=== PATIENT | male | born 1955 | race Caucasian/White ===

== ENCOUNTER → 2024-08-13 | Outpatient (CLI) | payer MEDICARE, SELFPAY ==
[2024-08-13 09:54] LABS: Collection Type, Urine Clean Catch
[2024-08-13 10:32] LABS: Basophils # (Auto) 0.1 Thou/mm3 (0.0-0.2); Basophils % (Auto) 2 % (0-2.5); Eosinophils # (Auto) 0.2 Thou/mm3 (0.0-0.5); Eosinophils % (Auto) 3 % (0-10); Hematocrit 40.3 % (41.0-53.0); Hemoglobin 13.5 g/dL (13.5-16.0); Immature Granulocytes % (Auto) 0 % (0-0); Immature Granulocytes Auto 0.03 Thou/mm3 (0.00-0.00); Lymphocytes # (Auto) 1.8 Thou/mm3 (1.0-4.8); Lymphocytes % (Auto) 25 % (10-50); Mean Corpuscular HGB Conc 33.5 g/dl (31.0-37.0); Mean Corpuscular Hemoglobin 30.7 pg (25.0-35.0); Mean Corpuscular Volume 92 fL (80-100); Monocytes # (Auto) 0.8 Thou/mm3 (0.0-0.8); Monocytes % (Auto) 11 % (0-12); Neutrophils # (Auto) 4.2 Thou/mm3 (1.8-7.7); Neutrophils % (Auto) 59 % (37-80); Nucleated Red Blood Cell % 0 /100 WBC (0); Platelet Count 225 Thou/mm3 (140-440); RDW Standard Deviation 41.8 fL (35.1-43.9); White Blood Count 7.2 Thou/mm3 (3.8-10.6)
[2024-08-13 10:34] LABS: Creatinine MALB Rnd Ur 145 mg/dL (30-125); Microalbumin Creat Ratio 33 mg/gCrea (<30); Microalbumin, Random Urine 48 mg/L (0-300)
[2024-08-13 10:46] LABS: Alanine Aminotransferase 24 U/L (10-49); Albumin, Serum 4.4 gm/dL (3.4-4.8); Albumin/Globulin Ratio 1.8 (1.2-2.2); Alkaline Phosphatase 100 U/L (46-116); Anion Gap 8 (7-16); Aspartate Amino Transferase 18 U/L (0-34); BUN/Creatinine Ratio 11 Ratio (12-20); Bilirubin,Total 0.4 mg/dL (0.3-1.2); Blood Urea Nitrogen 21 mg/dL (9-23); Calcium 9.3 mg/dL (8.3-10.6); Calcium (Corrected) 9.3 mg/dL (8.5-10.1); Carbon Dioxide 23.3 mMol/L (20.0-31.0); Cardiac Risk Estimate 4.6 RATIO (4.0-6.7); Chloride 108 mMol/L (98-107); Cholesterol 151 mg/dL (132-200); Globulin 2.5 gm/dL (2.3-3.5); Glucose 92 mg/dL (74-106); HDL Cholesterol 33 mg/dL (40-60); LDL Cholesterol,Calculated 94 mg/dL (0-130); Osmolality,Calculated 280 (275-295); Potassium 4.1 mMol/L (3.4-5.1); Sodium 139 mMol/L (136-145); Thyroid Stimulating Hormone 3.35 uIU/mL (0.55-4.78); Total Protein 6.9 gm/dL (5.7-8.2); Triglycerides 118 mg/dL (30-150); eGFR 36 See Note
[2024-08-13 10:47] LABS: Vitamin B12 437 pg/mL (211-911); Vitamin D 25 Hydroxy Total 25.4 ng/mL (7.3-40.2)
[2024-08-13 10:49] LABS: Bilirubin,Urine Negative (Negative); Blood,Urine Trace (Negative); Clarity,Urine Clear (Clear/Hazy); Color,Urine Lt-Yellow (Lt Yel-Yel); Glucose, Urine Negative (Negative); Ketones,Urine Negative (Negative); Leukocyte Esterase,Urine Negative (Negative); Nitrite,Urine Negative (Negative); Protein,Urine 1+ (Neg - Trace); RBC,Urine 3 /hpf (0-3); Specific Gravity,Urine 1.018 (1.001-1.035); Squamous Epithelial Cell,Urine < 1 /hpf (0-5); Urobilinogen,Urine Negative mg/dL (0.0-1.0); WBC,Urine 1 /hpf (0-5)
== END | disposition home or self-care (01) ==
LOC: COPL 09:13
PROVIDERS: PCP Internal Medicine; Referring Provider Internal Medicine; Visit Provider Internal Medicine
DX: I12.9 Hypertensive chronic kidney disease with stage 1 through stage 4 chronic kidney disease, or unspecified chronic kidney disease (principal); N18.30 Chronic kidney disease, stage 3 unspecified; E78.5 Hyperlipidemia, unspecified; E03.9 Hypothyroidism, unspecified
CPT/HCPCS: 36415; 80053; 80061; 81001; 82043; 82306; 82570; 82607; 83970; 84443; 85025

== ENCOUNTER → 2024-12-07 | Outpatient (CLI) | payer MEDICARE, SELFPAY ==
[2024-12-07 10:07] LABS: Parathyroid Hormone Intact 97.5 pg/ml (18.5-88.0)
[2024-12-07 10:14] LABS: Albumin, Serum 4.2 gm/dL (3.4-4.8); Anion Gap 8 (7-16); BUN/Creatinine Ratio 9 Ratio (12-20); Blood Urea Nitrogen 17 mg/dL (9-23); Carbon Dioxide 24.1 mMol/L (20.0-31.0); Chloride 109 mMol/L (98-107); Creatinine (Component) 1.9 mg/dL (0.6-1.3); Glucose 101 mg/dL (74-106); Osmolality,Calculated 282 (275-295); Potassium 3.8 mMol/L (3.4-5.1); Sodium 141 mMol/L (136-145); Thyroid Stimulating Hormone 4.26 uIU/mL (0.55-4.78); eGFR 38 See Note
== END | disposition home or self-care (01) ==
LOC: COPL 08:32
PROVIDERS: PCP Internal Medicine; Referring Provider Internal Medicine; Visit Provider Internal Medicine
DX: I10 Essential (primary) hypertension (principal); E03.9 Hypothyroidism, unspecified
CPT/HCPCS: 36415; 80069; 83970; 84443

== ENCOUNTER → 2025-01-14 | Outpatient (CLI) | payer MEDICARE, SELFPAY ==
[2025-01-14 11:21] LABS: Alanine Aminotransferase 21 U/L (10-49); Albumin, Serum 4.2 gm/dL (3.4-4.8); Albumin/Globulin Ratio 1.8 (1.2-2.2); Alkaline Phosphatase 84 U/L (46-116); Anion Gap 9 (7-16); BUN/Creatinine Ratio 11 Ratio (12-20); Bilirubin,Total 0.4 mg/dL (0.3-1.2); Blood Urea Nitrogen 21 mg/dL (9-23); Calcium 9.2 mg/dL (8.3-10.6); Calcium (Corrected) 9.2 mg/dL (8.5-10.1); Carbon Dioxide 22.5 mMol/L (20.0-31.0); Chloride 106 mMol/L (98-107); Creatinine (Component) 1.9 mg/dL (0.6-1.3); Globulin 2.3 gm/dL (2.3-3.5); Glucose 95 mg/dL (74-106); Osmolality,Calculated 276 (275-295); Potassium 3.6 mMol/L (3.4-5.1); Sodium 137 mMol/L (136-145); Total Protein 6.5 gm/dL (5.7-8.2); eGFR 38 See Note
[2025-01-14 11:30] LABS: Basophils # (Auto) 0.1 Thou/mm3 (0.0-0.2); Basophils % (Auto) 2 % (0-2.5); Eosinophils # (Auto) 0.2 Thou/mm3 (0.0-0.5); Eosinophils % (Auto) 3 % (0-10); Hematocrit 39.8 % (41.0-53.0); Hemoglobin 13.7 g/dL (13.5-16.0); Immature Granulocytes % (Auto) 0 % (0-0); Immature Granulocytes Auto 0.03 Thou/mm3 (0.00-0.00); Lymphocytes # (Auto) 1.8 Thou/mm3 (1.0-4.8); Lymphocytes % (Auto) 25 % (10-50); Mean Corpuscular HGB Conc 34.4 g/dl (31.0-37.0); Mean Corpuscular Hemoglobin 31.2 pg (25.0-35.0); Mean Corpuscular Volume 91 fL (80-100); Monocytes # (Auto) 0.8 Thou/mm3 (0.0-0.8); Monocytes % (Auto) 10 % (0-12); Neutrophils # (Auto) 4.4 Thou/mm3 (1.8-7.7); Neutrophils % (Auto) 60 % (37-80); Nucleated Red Blood Cell % 0 /100 WBC (0); Platelet Count 227 Thou/mm3 (140-440); RDW Standard Deviation 41.7 fL (35.1-43.9); Red Blood Count 4.39 Miln/mm3 (4.50-5.90); White Blood Count 7.2 Thou/mm3 (3.8-10.6)
== END | disposition home or self-care (01) ==
LOC: SCTO 09:44
PROVIDERS: PCP Internal Medicine; Referring Provider Internal Medicine Hematology & Oncology; Visit Provider Internal Medicine Hematology & Oncology
DX: C77.0 Secondary and unspecified malignant neoplasm of lymph nodes of head, face and neck (principal)
CPT/HCPCS: 36415; 80053; 85025

== ENCOUNTER 2025-01-24 09:47 | Outpatient (RCR) | payer MEDICARE, SELFPAY ==
--- NOTE | 2025-01-24 10:54 | CTCFLWUP_ITS ---
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 He presents for follow-up of his oncological care and management of multiple chronic conditions. Since his last visit, the patient reports no new symptoms or changes in his overall health status. He denies weight loss, new cough, or shortness of breath. The patient has been adherent to smoking cessation efforts, using a nicotine patch for the past 2 months. He continues to manage his chronic conditions, including kidney dysfunction resulting from previous cisplatin treatment. The patient reports ongoing oral dryness due to saliva gland removal during previous surgery, which he manages by drinking water constantly. The patient recently underwent a prostate biopsy following the discovery of a 2.5 cm suspicious nodule during a renal ultrasound. The biopsy results were clear. He has been following up with his primary care physician, Dr. Ballesteros, who is also a kidney specialist, for management of his chronic kidney disease. Medications and Supplements - Nicotine patch - Using for 2 months for smoking cessation - Cisplatin - Discontinued - Caused kidney damage Review of Systems General: Negative for weight loss. Respiratory: Negative for new cough, shortness of breath. Objective: Laboratory, Imaging, and Diagnostic Test Results - PET scan (2022): Negative - Renal ultrasound: Prostate nodule detected - PSA: 0.60 - Prostate biopsy: Clear - Kidney function: 38 (normal 60) - Labs: Reported as good (no specific values provided) ONCOLOGY HISTORY: DIAGNOSIS: Metastatic squamous cell carcinoma of the neck of unknown primary probably from the head and neck region (09/06/2014). Chronic renal insufficiency thought to be secondary to cisplatin that was used during his treatment for metastatic squamous cell carcinoma of the neck. PET/CT scan negative (09/17/2022) REASON FOR TODAY?S VISIT: This is office follow-up visit. Mr. Gunn is here at [facility]. He is clinically doing well. Denies any new complaints. Denies any cough, chest pain, abdominal pain or leg cramps. He was recently found to have a nodule in the prostate gland on renal ultrasound. Patient is scheduled to see Dr. Goncalves. PSA was in the normal range Secondary and unspecified malignant neoplasm of lymph nodes of head, face and neck [ICD10] C77.0 DATE OF DIAGNOSIS: 09/06/2014 STAGE/TNM: Metastatic squamous cell cancer of neck TREATMENT HISTORY: Care?Plan Start?Date Cycle Day Intent CISplatin?40?mg/m*2?+?Radiation?Therapy?-?Primary,?Adj,?Rec 10/09/2014 1 7 Curative?(primary) Cetuximab?250 12/04/2014 1 28 Curative?(adjuvant) HISTORY OF PRESENT ILLNESS: Federico Gunn is a 69-year-old Beninese speaking male, retired a [employer], with history of COPD, low back pain, hypertension has the following oncology history. 08/21/2014: Patient had ultrasound of the head and neck soft tissues which showed a 4.7 x 3.7 x 1.8 cm mass, solid with areas of cystic change in the submental region on the right side of the neck. 09/06/2014: Patient had excision biopsy of the mass on the right side of the neck. Pathology showed metastatic squamous cell carcinoma, moderately differentiated, keratinizing type. Workup at that time did not show any primary tumor in the head and neck region. Patient was treated with chemoradiation followed by surgery. 10/07/2014?12/13/2014: Patient received 6300 cGy radiation to the head and neck. 10/09/2014?11/11/2014: Patient received 5 weekly doses of cisplatin. 11/25/2018: PET CT scan was done. It did not show any evidence of metastatic disease. 12/22/2019: PET CT scan?no interval recurrent tumor or metastatic disease. 09/17/2022: PET/CT scan?for metastatic disease.. 12/07/2023: PSA 0.60. 12/16/2023: Complete retroperitoneal ultrasound OTHER MEDICAL HISTORY/CONDITIONS: FAMILY HISTORY: SOCIAL HISTORY: MEDICATIONS: 1. amlodipine - 5 mg 1 tab Twice a Day 2. levothyroxine - 50 mcg 1 tab Daily 3. metoprolol succinate - 50 mg 1 tab Daily 4. Symbicort - 80-4.5 mcg/actuation Twice a Day 5. tamsulosin - 0.4 mg 1 Capsule Daily Medications Last Reconciled by Della Torres MA on 01/24/2025 ALLERGIES: No Known Allergies REVIEW OF SYSTEMS: A complete 14-point review of systems was performed and is negative except as noted in interval history. PHYSICAL EXAMINATION: VITAL SIGNS: Temperature?98.2, B/P?117/70, Oxygen?Saturation?97% Weight?189?lbs PAIN: 0 - No pain ECOG Performance Status: 0 - Asymptomatic and fully active GENERAL APPEARANCE: Appears well, in no apparent distress, appropriately interactive. HEENT: Normocephalic, no temporal wasting, normal conjunctiva, no scleral icterus, normal hearing, lips without lesions, neck normal range of motion. CARDIOVASCULAR: Not assessed. PULMONARY: Normal respiratory effort, no respiratory distress or use of accessory muscles, speaking in full sentences, no tachypnea. EXTREMITIES: No pedal edema or cyanosis. SKIN: Normal skin appearance. NEUROLOGIC: Alert and oriented x4. PSHYCHIATRIC: Appropriate affect, mood normal, behavior normal, intact thought and speech. LABORATORY DATA: I have personally reviewed and interpreted each of the patient?s relevant lab tests, abnormal findings are below: Date 08/13/24 12/07/24 01/14/25 ??WHITE?BLOOD?COUNT?(Thou/mm3) 7.2 ? 7.2 ??RED?BLOOD?COUNT?(Miln/mm3) 4.40?L ? 4.39?L ??HEMOGLOBIN?(gm/dl) 13.5 ? 13.7 ??HEMATOCRIT?(%) 40.3?L ? 39.8?L ??PLATELET?COUNT?(Thou/mm3) 225 ? 227 ??NEUTROPHILS?%,?AUTO?(%) 59 ? 60 ??LYMPH?%,?AUTO?(%) 25 ? 25 ??NEUTROPHILS,?AUTO?(Thou/mm3) 4.2 ? 4.4 ??GLUCOSE,RANDOM?(mg/dL) ? 101 95 ??BLOOD?UREA?NITROGEN?(mg/dL) ? 17 21 ??CREATININE?(mg/dL) ? 1.90?H 1.90?H ??SODIUM?(mmol/L) ? 141 137 ??POTASSIUM?(mmol/L) ? 3.8 3.6 ??CHLORIDE?(mmol/L) ? 109?H 106 ??CrCl?(CandG)?(ml/min) ? 42.12 42.12 ??ALT/SGPT?(Unit/L) ? ? 21 ??ALKALINE?PHOSPHATASE?(Unit/L) ? ? 84 ??BILIRUBIN,?TOTAL?(mg/dL) ? ? 0.4 ??PROTEIN?TOTAL?(gm/dl) ? ? 6.5 ??ALBUMIN,?SERUM?(gm/dl) ? 4.2 4.2 ??GLOBULIN?(gm/dl) ? ? 2.3 ??ALBUMIN/GLOBULIN?RATIO ? ? 1.8 ??CALCIUM,?SERUM?(mg/dL) ? 9.0 9.2 ??CALCIUM?SERUM?(CORRECTED)?(mg/dL) ? 9.0 9.2 ASSESSMENT/PLAN: Male patient with history of metastatic squamous cell carcinoma of the neck (unknown primary) in 2014, chronic adrenal insufficiency, and candidiasis, presenting for follow-up of various health concerns. 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 A PET scan in 2022 was negative, suggesting no current evidence of disease. Patient underwent surgery for tumor removal, which included removal of a saliva gland, resulting in chronic dry mouth. No current symptoms suggestive of recurrence, such as weight loss, new cough, or shortness of breath. History of metastatic squamous cell carcinoma presented as a metastatic lytic lesion in the right side of the neck with unknown primary. Patient was treated with excision biopsy followed by chemoradiation Plan: - Schedule CT scan of the chest without contrast due to smoking history and kidney issues - Refer to ENT for follow-up after tumor removal surgery - Advise patient to drink water constantly to manage dry mouth from saliva gland removal - Follow up in one year for routine visit Chronic kidney disease Assessment: Patient has reduced kidney function with an estimated GFR of 38 mL/min (normal is 60 mL/min). The kidney damage is attributed to previous cisplatin treatment. Patient is under the care of Dr. Ballesteros, a kidney specialist, for management. Plan: - Avoid nephrotoxic medications, including aspirin, ibuprofen, and other NSAIDs - Encourage increased water intake - Recommend dietary modifications: limit salt intake, avoid processed foods, especially preserved pickles, and reduce consumption of red meat, beef, and pork - Continue follow-up with Dr. Ballesteros for kidney management Smoking Assessment: Patient is a current smoker and has been using a nicotine patch for smoking cessation for 2 months. Smoking cessation is crucial for overall health, particularly given the patient's history of cancer and kidney disease. Plan: - Continue nicotine patch for smoking cessation - Reinforce importance of smoking cessation - Monitor progress and provide support as needed Prostate nodule Assessment: A 2.5 cm suspicious nodule was previously noted in the prostate. Patient was referred to Dr. Goncalves, a urologist, for further evaluation. Subsequent biopsy was clear. PSA level was 0.60. Plan: - No immediate intervention required given clear biopsy results - Continue routine prostate cancer screening as per age-appropriate guidelines Chronic adrenal insufficiency Assessment: Patient has a history of chronic adrenal insufficiency. No acute issues related to this condition were discussed during the visit. Plan: - Continue current management for adrenal insufficiency - Monitor for any signs of adrenal crisis Candidiasis Assessment: Patient has a history of candidiasis. No active symptoms or concerns related to this condition were discussed during the visit. Plan: - Continue current management for candidiasis if any - Monitor for recurrence of symptoms Mr. Gunn is currently being referred to Dr. Goncalves, urologist. I have advised Mr. Gunn to call us back and make an appointment if he was found to have prostate cancer I will see the patient back in clinic in 1 year with CBC and CMP done prior to the visit. ORDERS: Order # Description [id number] Comprehensive Metabolic Panel - 12 + CBC with Auto Diff + PSA [id number] CT Scan + Chest + Without Contrast [id number] MD Follow Up 2 Months + MD Follow Up 1 Year RETURN TO CLINIC: BILLING AND COMPLIANCE: I reviewed external records from providers outside my specialty as summarized above. I spent a total of 50 minutes on this patient?s care on the day of their visit excluding time spent related to any billed procedures. This time includes time spent with the patient as well as time spent documenting in the medical record, reviewing patients records and tests, obtaining history, placing orders, communicating with other healthcare professionals, counseling the patient, family or caregiver, and/or care coordination for the diagnoses above. Electronically Signed by: Misha Celis MD T: 10:52 AM CC: Chance?Evangelina? PCP: Chance Hutchinson Referring: Chance Hutchinson This document was completed utilizing speech recognition software. Grammatical errors, random word insertions, pronoun errors, and incomplete sentences are an occasional consequence of this system due to software limitations, ambient noise, and hardware issues. Any formal questions or concerns about the content, text or information contained within the body of this dictation should be directly addressed to the provider for clarification.
== END 2025-02-04 23:59 | disposition home or self-care (01) ==
LOC: SCTC 09:47
PROVIDERS: PCP Internal Medicine; Referring Provider Internal Medicine; Visit Provider Internal Medicine Hematology & Oncology
DX: Z08 Encounter for follow-up examination after completed treatment for malignant neoplasm (principal); Z85.9 Personal history of malignant neoplasm, unspecified; N18.9 Chronic kidney disease, unspecified; F17.200 Nicotine dependence, unspecified, uncomplicated; Z71.6 Tobacco abuse counseling; N40.2 Nodular prostate without lower urinary tract symptoms; E27.40 Unspecified adrenocortical insufficiency; Z86.19 Personal history of other infectious and parasitic diseases
CPT/HCPCS: 99212; G0463

== ENCOUNTER → 2025-02-25 | Outpatient (CLI) | payer MEDICARE, SELFPAY ==
--- NOTE | 2025-02-25 16:30 | XR_ITS ---
Examination: CT chest, without intravenous contrast. Sagittal and coronal 2-D reconstructions. Exam date and time: February 25, 2025 1559 hours INDICATIONS: Smoking history 40 years, 2 mm pleural-based pulmonary nodule right upper lobe on CT chest May 27, 2015, diagnosis malignant neoplasm lymph nodes CTDI:vol (mGy) 12 DLP: (mGycm) 467 Technique: Multiple 3.0 mm axial sections of the chest to been obtained. Bone and lung density settings are obtained. Sagittal and coronal 2-D reconstructions have been obtained. Low dose protocols were performed. One or more of the following dose reduction techniques were used; automated exposure control, adjustment of the mA and/or KV according to patient size, use of iterative reconstruction technique. Findings: No thoracic aortic aneurysm dilatation Pulmonary artery segments are not enlarged No paratracheal tracheobronchial or bronchopulmonary adenopathy. 3 mm pulmonary nodule right upper lobe image 158 2 mm pulmonary nodule right upper lobe axial image 193 Soft spiculated nodule in the right upper lobe, 16 mm, image 193 2 mm pleural-based pulmonary nodule right lower lobe image 214 No pneumonia or pulmonary edema No visualized liver or splenic lesion IMPRESSION: Multiple pulmonary nodules as above, recommend continued 6 month follow-up CT chest without contrast Partial visualization 8.4 cm right renal cyst, please see the CT abdomen pelvis report 05/02/2024
== END | disposition home or self-care (01) ==
PROVIDERS: Referring Provider Internal Medicine Hematology & Oncology; Visit Provider Internal Medicine Hematology & Oncology
DX: R91.8 Other nonspecific abnormal finding of lung field (principal); N20.0 Calculus of kidney; C77.0 Secondary and unspecified malignant neoplasm of lymph nodes of head, face and neck
CPT/HCPCS: 71271

== ENCOUNTER → 2025-03-11 | Outpatient (CLI) | payer MEDICARE, SELFPAY ==
[2025-03-11 08:40] LABS: Basophils # (Auto) 0.1 Thou/mm3 (0.0-0.2); Basophils % (Auto) 1 % (0-2.5); Eosinophils # (Auto) 0.2 Thou/mm3 (0.0-0.5); Eosinophils % (Auto) 2 % (0-10); Hematocrit 43.3 % (41.0-53.0); Hemoglobin 14.6 g/dL (13.5-16.0); Immature Granulocytes Auto 0.07 Thou/mm3 (0.00-0.00); Lymphocytes # (Auto) 1.4 Thou/mm3 (1.0-4.8); Lymphocytes % (Auto) 21 % (10-50); Mean Corpuscular HGB Conc 33.7 g/dl (31.0-37.0); Mean Corpuscular Hemoglobin 30.9 pg (25.0-35.0); Mean Corpuscular Volume 92 fL (80-100); Monocytes # (Auto) 0.7 Thou/mm3 (0.0-0.8); Monocytes % (Auto) 10 % (0-12); Neutrophils # (Auto) 4.5 Thou/mm3 (1.8-7.7); Neutrophils % (Auto) 65 % (37-80); Nucleated Red Blood Cell # 0.00 Thou/mm3 (0.00-0.00); Nucleated Red Blood Cell % 0 /100 WBC (0); Platelet Count 212 Thou/mm3 (140-440); RDW Standard Deviation 41.4 fL (35.1-43.9); Red Blood Count 4.73 Miln/mm3 (4.50-5.90); White Blood Count 7.0 Thou/mm3 (3.8-10.6)
[2025-03-11 08:53] LABS: Alanine Aminotransferase 30 U/L (10-49); Albumin, Serum 4.5 gm/dL (3.4-4.8); Albumin/Globulin Ratio 1.8 (1.2-2.2); Alkaline Phosphatase 90 U/L (46-116); Anion Gap 9 (7-16); Aspartate Amino Transferase 22 U/L (0-34); BUN/Creatinine Ratio 8 Ratio (12-20); Bilirubin,Total 0.7 mg/dL (0.3-1.2); Blood Urea Nitrogen 16 mg/dL (9-23); Calcium 9.4 mg/dL (8.3-10.6); Calcium (Corrected) 9.4 mg/dL (8.5-10.1); Carbon Dioxide 21.3 mMol/L (20.0-31.0); Cardiac Risk Estimate 5.3 RATIO (4.0-6.7); Chloride 109 mMol/L (98-107); Cholesterol 155 mg/dL (132-200); Creatinine (Component) 1.9 mg/dL (0.6-1.3); Free T4 (Free Thyroxine) 1.24 ng/dL (0.89-1.76); Globulin 2.5 gm/dL (2.3-3.5); Glucose 107 mg/dL (74-106); HDL Cholesterol 29 mg/dL (40-60); LDL Cholesterol,Calculated 92 mg/dL (0-130); Magnesium 1.6 mg/dL (1.6-2.6); Osmolality,Calculated 278 (275-295); Potassium 3.9 mMol/L (3.4-5.1); Sodium 139 mMol/L (136-145); Thyroid Stimulating Hormone 4.29 uIU/mL (0.55-4.78); Total Protein 7.0 gm/dL (5.7-8.2); Triglycerides 169 mg/dL (30-150); eGFR 38 See Note
[2025-03-11 09:02] LABS: Glucose Estimated Average 117 mg/dL (80-131); Hemoglobin A1C 5.7 % Hgb (4.8-6.0)
== END | disposition home or self-care (01) ==
LOC: COPL 07:29
PROVIDERS: PCP Internal Medicine; Referring Provider Internal Medicine; Visit Provider Internal Medicine
DX: Z00.00 Encounter for general adult medical examination without abnormal findings (principal); I10 Essential (primary) hypertension; E11.9 Type 2 diabetes mellitus without complications; E78.5 Hyperlipidemia, unspecified; E61.2 Magnesium deficiency
CPT/HCPCS: 36415; 80053; 80061; 83036; 83735; 84439; 84443; 85025

== ENCOUNTER → 2025-03-21 | Outpatient (CLI) | payer MEDICARE, SELFPAY ==
[2025-03-21 10:42] LABS: Basophils # (Auto) 0.1 Thou/mm3 (0.0-0.2); Basophils % (Auto) 2 % (0-2.5); Eosinophils # (Auto) 0.2 Thou/mm3 (0.0-0.5); Eosinophils % (Auto) 3 % (0-10); Hematocrit 37.4 % (41.0-53.0); Hemoglobin 12.4 g/dL (13.5-16.0); Immature Granulocytes Auto 0.03 Thou/mm3 (0.00-0.00); Lymphocytes # (Auto) 1.6 Thou/mm3 (1.0-4.8); Lymphocytes % (Auto) 23 % (10-50); Mean Corpuscular HGB Conc 33.2 g/dl (31.0-37.0); Mean Corpuscular Hemoglobin 31.0 pg (25.0-35.0); Mean Corpuscular Volume 94 fL (80-100); Monocytes # (Auto) 0.7 Thou/mm3 (0.0-0.8); Monocytes % (Auto) 10 % (0-12); Neutrophils # (Auto) 4.2 Thou/mm3 (1.8-7.7); Neutrophils % (Auto) 62 % (37-80); Nucleated Red Blood Cell # 0.00 Thou/mm3 (0.00-0.00); Nucleated Red Blood Cell % 0 /100 WBC (0); Platelet Count 207 Thou/mm3 (140-440); RDW Standard Deviation 43.3 fL (35.1-43.9); Red Blood Count 4.00 Miln/mm3 (4.50-5.90); White Blood Count 6.8 Thou/mm3 (3.8-10.6)
[2025-03-21 11:00] LABS: Alanine Aminotransferase 23 U/L (10-49); Albumin, Serum 4.2 gm/dL (3.4-4.8); Albumin/Globulin Ratio 1.8 (1.2-2.2); Alkaline Phosphatase 81 U/L (46-116); Anion Gap 7 (7-16); Aspartate Amino Transferase 23 U/L (0-34); BUN/Creatinine Ratio 10 Ratio (12-20); Bilirubin,Total 0.6 mg/dL (0.3-1.2); Blood Urea Nitrogen 19 mg/dL (9-23); Calcium 9.0 mg/dL (8.3-10.6); Calcium (Corrected) 9.0 mg/dL (8.5-10.1); Carbon Dioxide 21.9 mMol/L (20.0-31.0); Chloride 111 mMol/L (98-107); Creatinine (Component) 1.9 mg/dL (0.6-1.3); Globulin 2.4 gm/dL (2.3-3.5); Glucose 82 mg/dL (74-106); Osmolality,Calculated 280 (275-295); Potassium 4.1 mMol/L (3.4-5.1); Sodium 140 mMol/L (136-145); Total Protein 6.6 gm/dL (5.7-8.2); eGFR 38 See Note
[2025-03-21 12:17] LABS: Prostate Specific Antigen 0.60 ng/mL (0-4.00)
== END | disposition home or self-care (01) ==
LOC: SCTO 09:33
PROVIDERS: PCP Internal Medicine; Referring Provider Internal Medicine Hematology & Oncology; Visit Provider Internal Medicine Hematology & Oncology
DX: C77.0 Secondary and unspecified malignant neoplasm of lymph nodes of head, face and neck (principal)
CPT/HCPCS: 36415; 80053; 84153; 85025

== ENCOUNTER 2025-03-26 15:42 | Outpatient (RCR) | payer MEDICARE, SELFPAY ==
--- NOTE | 2025-03-26 15:56 | CTCFLWUP_ITS ---
Patient: FEDERICO GUNN : 1955 MR#: [id number] Page 2 of 2 TELEHEALTH FOLLOW UP NOTE DATE OF CONSULTATION: 03/26/2025 NAME: FEDERICO GUNN ACCOUNT: [id number] : 1955 AGE: 69 REFERRING PHYSICIAN: Chance Hutchinson MD PRIMARY PHYSICIAN: Chance Hutchinson MD INTERVAL HISTORY: Patient is a 43-swua-zeur smoking history. Patient is a current smoker. Patient have a history of head and neck cancer. Patient here to follow-up on the CT scan. DIAGNOSIS: Secondary and unspecified malignant neoplasm of lymph nodes of head, face and neck [ICD10] C77.0 HISTORY OF PRESENT ILLNESS: Federico Gunn is a 69-year-old Maori speaking male, retired a clinical psychologist private practice, with history of COPD, low back pain, hypertension has the following oncology history. 08/21/2014: Patient had ultrasound of the head and neck soft tissues which showed a 4.7 x 3.7 x 1.8 cm mass, solid with areas of cystic change in the submental region on the right side of the neck. 09/06/2014: Patient had excision biopsy of the mass on the right side of the neck. Pathology showed metastatic squamous cell carcinoma, moderately differentiated, keratinizing type. Workup at that time did not show any primary tumor in the head and neck region. Patient was treated with chemoradiation fo llowed by surgery. 10/07/2014?12/13/2014: Patient received 6300 cGy radiation to the head and neck. 10/09/2014?11/11/2014: Patient received 5 weekly doses of cisplatin. 11/25/2018: PET CT scan was done. It did not show any evidence of metastatic disease. 12/22/2019: PET CT scan?no interval recurrent tumor or metastatic disease. 09/17/2022: PET/CT scan?for metastatic disease.. 12/07/2023: PSA 0.60. 12/16/2023: Complete retroperitoneal ultrasoundOTHER MEDICAL HISTORY/CONDITIONS: 02/25/2025 CT scan shows multiple pulmonary nodules ranging 2 to 3 mm and recommended 6-month follow-up largest nodule 16 mm soft spiculated nodule FAMILY HISTORY: SOCIAL HISTORY: MEDICATIONS: 1. amlodipine - 5 mg 1 tab Twice a Day 2. levothyroxine - 50 mcg 1 tab Daily 3. metoprolol succinate - 50 mg 1 tab Daily 4. Symbicort - 80-4.5 mcg/actuation Twice a Day 5. tamsulosin - 0.4 mg 1 Capsule Daily Medications Last Reconciled by Della Torres MA on 01/24/2025 ALLERGIES: No Known Allergies REVIEW OF SYSTEMS: A complete 14-point review of systems was performed and is negative except as noted in interval history. PHYSICAL EXAMINATION: The patient appeared well-nourished, alert, and in no apparent distress via video conferencing. LABORATORY DATA: I have personally reviewed and interpreted each of the patient?s relevant lab tests, abnormal findings are below: ASSESSMENT/PLAN: Head and neck cancer Lung nodules in the smoker Reviewed CT scan findings with Mr. Gunn. Radiology recommended to repeat CT scan in 6 months Patient have a soft spiculated nodule in the right upper lobe Will refer to interventional radiology for possible biopsy If biopsy cannot be completed we will do repeat CT scan in 6 months RTC after the biopsy results ORDERS: Order # Description [id number] CT Scan + Chest + With W/O Contrast [id number] MD Follow Up 6 Month + CBC with Auto Diff + Comprehensive Metabolic Panel - 12 + PSA RETURN TO CLINIC: I reviewed the diagnosis, prognosis, and recommended treatment/procedure options with the patient (and/or their legal sales representative facility services), including the potential benefits, risks, side effects and alternative therapies. We also discussed the option of no treatment and the possibility of clinical trial participation, if applicable. All questions were addressed, and they demonstrated understanding. They provided informed consent to proceed with the proposed plan of care. BILLING AND COMPLIANCE: I reviewed external records from providers outside my specialty as summarized above. I spent a total of 50 minutes on this patient?s care on the day of their visit excluding time spent related to any billed procedures. This time includes time spent with the patient as well as time spent documenting in the medical record, reviewing patients records and tests, obtaining history, placing orders, communicating with other healthcare professionals, counseling the patient, family or caregiver, and/or care coordination for the diagnoses above. I performed this evaluation using real-time Telehealth tools. Prior to initiating, the patient consented to perform this evaluation using Telehealth tools. Electronically Signed by: Misha Celis MD T: 3:54 PM CC: Uri,? PCP: Chance Hutchinson Referring: Chance Hutchinson This document was completed utilizing speech recognition software. Grammatical errors, random word insertions, pronoun errors, and incomplete sentences are an occasional consequence of this system due to software limitations, ambient noise, and hardware issues. Any formal questions or concerns about the content, text or information contained within the body of this dictation should be directly addressed to the provider for clarification.
== END 2025-04-07 23:59 | disposition home or self-care (01) ==
LOC: SCTC 15:42
PROVIDERS: PCP Internal Medicine; Referring Provider Internal Medicine; Visit Provider Internal Medicine Hematology & Oncology
DX: Z08 Encounter for follow-up examination after completed treatment for malignant neoplasm (principal); Z85.89 Personal history of malignant neoplasm of other organs and systems; Z92.3 Personal history of irradiation; Z92.21 Personal history of antineoplastic chemotherapy; R91.8 Other nonspecific abnormal finding of lung field; F17.200 Nicotine dependence, unspecified, uncomplicated
CPT/HCPCS: 99212; G0463

== ENCOUNTER 2025-05-27 14:53 | Outpatient (RCR) | payer MEDICARE, SELFPAY ==
--- NOTE | 2025-06-02 21:08 | CTCFLWUP_ITS ---
Patient: FEDERICO GUNN : 1955 Page 2 of 4 FOLLOW UP NOTE DATE OF SERVICE: 05/27/2025 NAME: FEDERICO GUNN ACCOUNT: [id number] : 1955 AGE: 69 INTERVAL HISTORY: Patient is a 43-kllk-lsxm smoking history. Patient is a current smoker. Patient have a history of head and neck cancer. Multiple pulmonary nodules as above, recommend continued 6 month follow-up CT chest without contrast ONCOLOGY HISTORY: DIAGNOSIS: Secondary and unspecified malignant neoplasm of lymph nodes of head, face and neck [ICD10] C77.0 Secondary and unspecified malignant neoplasm of lymph nodes of head, face and neck [ICD10] C77.0 DATE OF DIAGNOSIS: STAGE/TNM: TREATMENT HISTORY: Care?Plan Start?Date Cycle Day Intent CISplatin?40?mg/m*2?+?Radiation?Therapy?-?Primary,?Adj,?Rec 10/09/2014 1 7 Curative?(primary) Cetuximab?250 12/04/2014 1 28 Curative?(adjuvant) HISTORY OF PRESENT ILLNESS: Federico Gunn is a 69-year-old Turkmen speaking male, retired a [employer], with history of COPD, low back pain, hypertension has the following oncology history. 08/21/2014: Patient had ultrasound of the head and neck soft tissues which showed a 4.7 x 3.7 x 1.8 cm mass, solid with areas of cystic change in the submental region on the right side of the neck. 09/06/2014: Patient had excision biopsy of the mass on the right side of the neck. Pathology showed metastatic squamous cell carcinoma, moderately differentiated, keratinizing type. Workup at that time did not show any primary tumor in the head and neck region. Patient was treated with chemoradiation fo llowed by surgery. 10/07/2014?12/13/2014: Patient received 6300 cGy radiation to the head and neck. 10/09/2014?11/11/2014: Patient received 5 weekly doses of cisplatin. 11/25/2018: PET CT scan was done. It did not show any evidence of metastatic disease. 12/22/2019: PET CT scan?no interval recurrent tumor or metastatic disease. 09/17/2022: PET/CT scan?for metastatic disease.. 12/07/2023: PSA 0.60. 12/16/2023: Complete retroperitoneal ultrasoundOTHER MEDICAL HISTORY/CONDITIONS: 02/25/2025 CT scan shows multiple pulmonary nodules ranging 2 to 3 mm and recommended 6-month follow-up largest nodule 16 mm soft spiculated nodule OTHER MEDICAL HISTORY/CONDITIONS: FAMILY HISTORY: ?Clone Family Hx? SOCIAL HISTORY: MEDICATIONS: 1. amlodipine - 10 mg 1 tab Daily 2. aspirin - 81 mg 1 tab Daily 3. levothyroxine - 50 mcg 1 tab Daily 4. metoprolol succinate - 25 mg 1 tab Daily 5. Symbicort - 80-4.5 mcg/actuation Twice a Day 6. tamsulosin - 0.4 mg 1 Capsule Daily?Palabra Meds? Medications Last Reconciled by Mirella Foy MD on 05/27/2025 ALLERGIES: No Known Allergies REVIEW OF SYSTEMS: A complete 14-point review of systems was performed and is negative except as noted in interval history. PHYSICAL EXAMINATION:?CloneBlock PE? VITAL SIGNS: Temperature?97.3, B/P?114/70, Oxygen?Saturation?96% Weight?185?lbs PAIN: 0 - No pain The patient appeared well-nourished, alert, and in no apparent distress via video conferencing. LABORATORY DATA: I have personally reviewed and interpreted each of the patient?s relevant lab tests, abnormal findings are below: Date 03/11/25 03/21/25 ??WHITE?BLOOD?COUNT?(Thou/mm3) 7.0 6.8 ??RED?BLOOD?COUNT?(Miln/mm3) 4.73 4.00?L ??HEMOGLOBIN?(gm/dl) 14.6 12.4?L ??HEMATOCRIT?(%) 43.3 37.4?L ??PLATELET?COUNT?(Thou/mm3) 212 207 ??NEUTROPHILS?%,?AUTO?(%) 65 62 ??LYMPH?%,?AUTO?(%) 21 23 ??NEUTROPHILS,?AUTO?(Thou/mm3) 4.5 4.2 ??GLUCOSE,RANDOM?(mg/dL) 107?H 82 ??BLOOD?UREA?NITROGEN?(mg/dL) 16 19 ??CREATININE?(mg/dL) 1.90?H 1.90?H ??SODIUM?(mmol/L) 139 140 ??POTASSIUM?(mmol/L) 3.9 4.1 ??CHLORIDE?(mmol/L) 109?H 111?H ??CrCl?(CandG)?(ml/min) 45.75 45.75 ??AST/SGOT?(Unit/L) 22 23 ??ALT/SGPT?(Unit/L) 30 23 ??ALKALINE?PHOSPHATASE?(Unit/L) 90 81 ??BILIRUBIN,?TOTAL?(mg/dL) 0.7 0.6 ??PROTEIN?TOTAL?(gm/dl) 7.0 6.6 ??ALBUMIN,?SERUM?(gm/dl) 4.5 4.2 ??GLOBULIN?(gm/dl) 2.5 2.4 ??ALBUMIN/GLOBULIN?RATIO 1.8 1.8 ??CALCIUM,?SERUM?(mg/dL) 9.4 9.0 ??CALCIUM?SERUM?(CORRECTED)?(mg/dL) 9.4 9.0 ASSESSMENT/PLAN:?Valentino Celis Assessment/Plan? Head and neck cancer Lung nodules in the smoker Reviewed CT scan findings with Mr. Gunn CT scan in February showed multiple lesions in the lung. Radiology recommended to repeat CT scan in 6 months Patient have a soft spiculated nodule in the right upper lobe Patient was ordered to have biopsy which is yet not completed Ordered repeat CT scan RTC after the scan ORDERS: Order # Description [id number] CT Scan + Chest + With W/O Contrast [id number] MD Follow Up 6 Month + CBC with Auto Diff + Comprehensive Metabolic Panel - 12 + PSA RETURN TO CLINIC: I reviewed the diagnosis, prognosis, and recommended treatment/procedure options with the patient (and/or their legal charter representative), including the potential benefits, risks, side effects and alternative therapies. We also discussed the option of no treatment and the possibility of clinical trial participation, if applicable. All questions were addressed, and they demonstrated understanding. They provided informed consent to proceed with the proposed plan of care. BILLING AND COMPLIANCE: I reviewed external records from providers outside my specialty as summarized above. I spent a total of 50 minutes on this patient?s care on the day of their visit excluding time spent related to any billed procedures. This time includes time spent with the patient as well as time spent documenting in the medical record, reviewing patients records and tests, obtaining history, placing orders, communicating with other healthcare professionals, counseling the patient, family or caregiver, and/or care coordination for the diagnoses above. Electronically Signed by: Misha Celis MD T: 9:06 PM CC: Chance?Evangelina? PCP: Chance Hutchinson Referring: Chance Hutchinson This document was completed utilizing speech recognition software. Grammatical errors, random word insertions, pronoun errors, and incomplete sentences are an occasional consequence of this system due to software limitations, ambient noise, and hardware issues. Any formal questions or concerns about the content, text or information contained within the body of this dictation should be directly addressed to the provider for clarification.
== END 2025-06-07 23:59 | disposition home or self-care (01) ==
LOC: SCTC 14:53
PROVIDERS: PCP Internal Medicine; Referring Provider Internal Medicine; Visit Provider Internal Medicine Hematology & Oncology
DX: C77.0 Secondary and unspecified malignant neoplasm of lymph nodes of head, face and neck (principal); R91.8 Other nonspecific abnormal finding of lung field; F17.210 Nicotine dependence, cigarettes, uncomplicated
CPT/HCPCS: 99212; G0463

== ENCOUNTER → 2025-06-07 | Outpatient (CLI) | payer MEDICARE, SELFPAY ==
[2025-06-07 12:12] LABS: Basophils # (Auto) 0.1 Thou/mm3 (0.0-0.2); Basophils % (Auto) 2 % (0-2.5); Eosinophils # (Auto) 0.3 Thou/mm3 (0.0-0.5); Eosinophils % (Auto) 4 % (0-10); Hematocrit 40.8 % (41.0-53.0); Hemoglobin 13.8 g/dL (13.5-16.0); Immature Granulocytes Auto 0.03 Thou/mm3 (0.00-0.00); Lymphocytes # (Auto) 1.9 Thou/mm3 (1.0-4.8); Lymphocytes % (Auto) 28 % (10-50); Mean Corpuscular HGB Conc 33.8 g/dl (31.0-37.0); Mean Corpuscular Hemoglobin 31.1 pg (25.0-35.0); Mean Corpuscular Volume 92 fL (80-100); Monocytes # (Auto) 0.9 Thou/mm3 (0.0-0.8); Monocytes % (Auto) 13 % (0-12); Neutrophils # (Auto) 3.6 Thou/mm3 (1.8-7.7); Neutrophils % (Auto) 53 % (37-80); Nucleated Red Blood Cell # 0.00 Thou/mm3 (0.00-0.00); Nucleated Red Blood Cell % 0 /100 WBC (0); Platelet Count 237 Thou/mm3 (140-440); RDW Standard Deviation 42.2 fL (35.1-43.9); Red Blood Count 4.44 Miln/mm3 (4.50-5.90); White Blood Count 6.7 Thou/mm3 (3.8-10.6)
[2025-06-07 12:42] LABS: Alanine Aminotransferase 23 U/L (10-49); Albumin, Serum 4.6 gm/dL (3.4-4.8); Albumin/Globulin Ratio 2.1 (1.2-2.2); Alkaline Phosphatase 90 U/L (46-116); Anion Gap 9 (7-16); Aspartate Amino Transferase 18 U/L (0-34); BUN/Creatinine Ratio 8 Ratio (12-20); Bilirubin,Total 0.4 mg/dL (0.3-1.2); Blood Urea Nitrogen 14 mg/dL (9-23); Calcium 9.2 mg/dL (8.3-10.6); Calcium (Corrected) 9.2 mg/dL (8.5-10.1); Carbon Dioxide 22.8 mMol/L (20.0-31.0); Chloride 109 mMol/L (98-107); Creatinine (Component) 1.8 mg/dL (0.6-1.3); Globulin 2.2 gm/dL (2.3-3.5); Glucose 103 mg/dL (74-106); Osmolality,Calculated 281 (275-295); Potassium 3.8 mMol/L (3.4-5.1); Sodium 141 mMol/L (136-145); Total Protein 6.8 gm/dL (5.7-8.2); eGFR 40 See Note
== END | disposition home or self-care (01) ==
PROVIDERS: PCP Internal Medicine; Referring Provider Internal Medicine Hematology & Oncology; Visit Provider Internal Medicine Hematology & Oncology
DX: C77.0 Secondary and unspecified malignant neoplasm of lymph nodes of head, face and neck (principal)
CPT/HCPCS: 36415; 80053; 85025

== ENCOUNTER → 2025-06-11 | Outpatient (CLI) | payer MEDICARE, SELFPAY ==
--- NOTE | 2025-06-11 16:00 | XR_ITS ---
Examination: CT chest with intravenous contrast CT chest without intravenous contrast 2-D reconstructions Date and time of exam: June 11, 2025, 1626 hours, comparison CT chest February 25, 2025 CT lumbar February 25, 2025, CT abdomen 05/02/2024, PET/CT scan December 21, 2019 INDICATIONS: Diagnosis secondary and unspecified malignant neoplasm of lymph nodes, smoking history with lung nodules CTDI:vol (mGy) 21.9 DLP: (mGycm) 865 Technique: Multiple axial sections of the thorax have been obtained. 3 mm slice thickness, from the hemidiaphragms to above the apices of the lungs. Mediastinal and lung density settings have been obtained. Intravenous contrast administered 30 cc Isovue-300. Noncontrast images have also been obtained. 2-D sagittal coronal images obtained. Low dose protocols were performed. One or more of the following dose reduction techniques were used; automated exposure control, adjustment of the mA and/or KV according to patient size, use of iterative reconstruction technique. Findings: No thoracic aortic aneurysmal dilatation or dissection No pulmonary artery defects on this poorly contrast opacified study Trace pericardial thickening No paratracheal tracheobronchial or bronchopulmonary adenopathy 2 mm pulmonary nodule right lower lobe image 187 5 mm pulmonary nodule right midlung image 141 5 mm pulmonary nodule lingular segment image 226 No lobar pneumonia or pulmonary edema No visualized liver or splenic lesion Large right renal apparent cyst incompletely visualized, 8 cm Scarred left kidney Absent gallbladder No pancreatic mass IMPRESSION: No mediastinal lymphadenopathy Noncalcified pulmonary nodules as above, recommend continued 6-month follow-up CT chest without contrast
== END | disposition home or self-care (01) ==
LOC: SCAT 15:37
PROVIDERS: PCP Internal Medicine; Referring Provider Internal Medicine Hematology & Oncology; Visit Provider Internal Medicine Hematology & Oncology
DX: R91.8 Other nonspecific abnormal finding of lung field (principal); C77.0 Secondary and unspecified malignant neoplasm of lymph nodes of head, face and neck
CPT/HCPCS: 71270; A4649; Q9967

== ENCOUNTER 2025-07-11 13:35 | Outpatient (RCR) | payer MEDICARE, SELFPAY ==
--- NOTE | 2025-07-11 14:22 | CTCFLWUP_ITS ---
Patient: FEDERICO GUNN : 1955 Page 2 of 4 FOLLOW UP NOTE DATE OF SERVICE: 07/11/2025 NAME: FEDERICO GUNN ACCOUNT: [id number] : 1955 AGE: 70 INTERVAL HISTORY: Patient is a [id number]-siod smoking history. Patient is a current smoker. Patient have a history of head and neck cancer in 2014. Patient's last CT scan with contrast is negative. No new complaints Patient is still smoking Counseled patient Needs CT screening testing every year ONCOLOGY HISTORY: DIAGNOSIS: Secondary and unspecified malignant neoplasm of lymph nodes of head, face and neck [ICD10] C77.0 Secondary and unspecified malignant neoplasm of lymph nodes of head, face and neck [ICD10] C77.0 DATE OF DIAGNOSIS: STAGE/TNM: TREATMENT HISTORY: Care?Plan Start?Date Cycle Day Intent CISplatin?40?mg/m*2?+?Radiation?Therapy?-?Primary,?Adj,?Rec 10/09/2014 1 7 Curative?(primary) Cetuximab?250 12/04/2014 1 28 Curative?(adjuvant) HISTORY OF PRESENT ILLNESS: Federico Gunn is a 70-year-old [place] speaking male, retired a psychiatric nursing aide, with history of COPD, low back pain, hypertension has the following oncology history. 08/21/2014: Patient had ultrasound of the head and neck soft tissues which showed a 4.7 x 3.7 x 1.8 cm mass, solid with areas of cystic change in the submental region on the right side of the neck. 09/06/2014: Patient had excision biopsy of the mass on the right side of the neck. Pathology showed metastatic squamous cell carcinoma, moderately differentiated, keratinizing type. Workup at that time did not show any primary tumor in the head and neck region. Patient was treated with chemoradiation fo llowed by surgery. 10/07/2014?12/13/2014: Patient received 6300 cGy radiation to the head and neck. 10/09/2014?11/11/2014: Patient received 5 weekly doses of cisplatin. 11/25/2018: PET CT scan was done. It did not show any evidence of metastatic disease. 12/22/2019: PET CT scan?no interval recurrent tumor or metastatic disease. 09/17/2022: PET/CT scan?for metastatic disease.. 12/07/2023: PSA 0.60. 12/16/2023: Complete retroperitoneal ultrasoundOTHER MEDICAL HISTORY/CONDITIONS: 02/25/2025 CT scan shows multiple pulmonary nodules ranging 2 to 3 mm and recommended 6-month follow-up largest nodule 16 mm soft spiculated nodule OTHER MEDICAL HISTORY/CONDITIONS: FAMILY HISTORY: SOCIAL HISTORY: MEDICATIONS: 1. amlodipine - 10 mg 1 tab Daily 2. aspirin - 81 mg 1 tab Daily 3. levothyroxine - 50 mcg 1 tab Daily 4. metoprolol succinate - 25 mg 1 tab Daily 5. Symbicort - 80-4.5 mcg/actuation Twice a Day 6. tamsulosin - 0.4 mg 1 Capsule Daily Medications Last Reconciled by Mirella Foy MD on 05/27/2025 ALLERGIES: No Known Allergies REVIEW OF SYSTEMS: A complete 14-point review of systems was performed and is negative except as noted in interval history. PHYSICAL EXAMINATION: VITAL SIGNS: The patient appeared well-nourished, alert, and in no apparent distress via video conferencing. LABORATORY DATA: I have personally reviewed and interpreted each of the patient?s relevant lab tests, abnormal findings are below: Date 03/21/25 06/07/25 ??WHITE?BLOOD?COUNT?(Thou/mm3) 6.8 6.7 ??RED?BLOOD?COUNT?(Miln/mm3) 4.00?L 4.44?L ??HEMOGLOBIN?(gm/dl) 12.4?L 13.8 ??HEMATOCRIT?(%) 37.4?L 40.8?L ??PLATELET?COUNT?(Thou/mm3) 207 237 ??NEUTROPHILS?%,?AUTO?(%) 62 53 ??LYMPH?%,?AUTO?(%) 23 28 ??NEUTROPHILS,?AUTO?(Thou/mm3) 4.2 3.6 ??GLUCOSE,RANDOM?(mg/dL) 82 103 ??BLOOD?UREA?NITROGEN?(mg/dL) 19 14 ??CREATININE?(mg/dL) 1.90?H 1.80?H ??SODIUM?(mmol/L) 140 141 ??POTASSIUM?(mmol/L) 4.1 3.8 ??CHLORIDE?(mmol/L) 111?H 109?H ??CrCl?(CandG)?(ml/min) 45.75 46.62 ??AST/SGOT?(Unit/L) 23 18 ??ALT/SGPT?(Unit/L) 23 23 ??ALKALINE?PHOSPHATASE?(Unit/L) 81 90 ??BILIRUBIN,?TOTAL?(mg/dL) 0.6 0.4 ??PROTEIN?TOTAL?(gm/dl) 6.6 6.8 ??ALBUMIN,?SERUM?(gm/dl) 4.2 4.6 ??GLOBULIN?(gm/dl) 2.4 2.2?L ??ALBUMIN/GLOBULIN?RATIO 1.8 2.1 ??CALCIUM,?SERUM?(mg/dL) 9.0 9.2 ??CALCIUM?SERUM?(CORRECTED)?(mg/dL) 9.0 9.2 ASSESSMENT/PLAN: Head and neck cancer Lung nodules in the smoker Reviewed CT scan findings with Mr. Gunn CT scan in February showed multiple lesions in the lung. Radiology recommended to repeat CT scan in 6 months Patient have a soft spiculated nodule in the right upper lobe CT scan is stable Will repeat another CT in 6 months\RTC in 6 months ORDERS: Order # Description [id number] CT Scan + Chest + With W/O Contrast [id number] MD Follow Up 6 Month + CBC with Auto Diff + Comprehensive Metabolic Panel - 12 + PSA RETURN TO CLINIC: I reviewed the diagnosis, prognosis, and recommended treatment/procedure options with the patient (and/or their legal personnel representative), including the potential benefits, risks, side effects and alternative therapies. We also discussed the option of no treatment and the possibility of clinical trial participation, if applicable. All questions were addressed, and they demonstrated understanding. They provided informed consent to proceed with the proposed plan of care. BILLING AND COMPLIANCE: I reviewed external records from providers outside my specialty as summarized above. I spent a total of 50 minutes on this patient?s care on the day of their visit excluding time spent related to any billed procedures. This time includes time spent with the patient as well as time spent documenting in the medical record, reviewing patients records and tests, obtaining history, placing orders, communicating with other healthcare professionals, counseling the patient, family or caregiver, and/or care coordination for the diagnoses above. Electronically Signed by: Misha Celis MD T: 2:20 PM CC: Chance?Evangelina,? PCP: Misha Celis Referring: Misha Celis This document was completed utilizing speech recognition software. Grammatical errors, random word insertions, pronoun errors, and incomplete sentences are an occasional consequence of this system due to software limitations, ambient noise, and hardware issues. Any formal questions or concerns about the content, text or information contained within the body of this dictation should be directly addressed to the provider for clarification.
== END 2025-08-07 23:59 | disposition home or self-care (01) ==
LOC: SCTC 13:35
PROVIDERS: PCP Internal Medicine; Referring Provider Internal Medicine Hematology & Oncology; Visit Provider Internal Medicine Hematology & Oncology
DX: Z08 Encounter for follow-up examination after completed treatment for malignant neoplasm (principal); Z85.79 Personal history of other malignant neoplasms of lymphoid, hematopoietic and related tissues; R91.8 Other nonspecific abnormal finding of lung field; F17.210 Nicotine dependence, cigarettes, uncomplicated
CPT/HCPCS: 99212; G0463